=== PATIENT | male | born 1955 | race Caucasian/White ===

== ENCOUNTER → 2017-06-26 | Day surgery (SDC) | payer OTHER ==
[2017-05-22 08:44] VITALS: Ht 167.6 cm; Wt 81.8 kg
[~2017-06-26] VITALS: Ht 167.6 cm; Wt 81.8 kg
[~2017-06-26] MED LIST: 500ML BSS 0.3ML EPI 1:1000PF IRRIG ONE; ACETAMINOPHEN 325 MG TAB PO PRN; AMVISC PLUS 0.8ML SYRINGE INT OCU ONE; ATROPINE SULFATE 0.1 MG/ML 5ML SYR IV PRN; BRIMONIDINE TART 0.2% OP SOLN PER DROP CHARGE ONE; BSS FLUSH ONE; ENDOCOAT 0.85ML SYRINGE INT OCU ONE; EpHEDrine SULFATE INJ 50 MG/ML AMP IV PRN; EpINEphrine INJ 1MG/ML AMP 1 MG/ML AMP ONE; LACTATED RINGER'S 1000ML 500 ML IV SCH; LIDOCAINE 4% OP SOLN DROP CHARGE ONE; LIDOCAINE 4% OP SOLN DROP CHARGE OPR SCH; LIDOCAINE HCL 1% MPF 2 ML VIAL ONE; MIDAZOLAM HCL 1 MG/ML 2ML VIAL ONE; MOXIFLOXACIN OPH SOLN PER DROP CHARGE ONE; ONDANSETRON INJ 2 MG/ML 2 ML VIAL IV PRN; POVIDONE-IODINE OP SOLN 30 ML BTL ONE; PROPARACAINE 0.5% OP SOLN PER DROP CHARGE OPR SCH; TOBRAMYCIN/DEXAMETHASONE OPH OINT PER APPLN CHARGE ONE
--- NOTE | 2017-06-26 10:09 | History & Physical Bridge - SC ---
H&P Re-Evaluation Bridge Note: I have examined the patient, reviewed the History & Physical and in the interval since the performance of the History & Physical I have noted the following changes of clinical significance: No changes noted
[2017-06-26] MEDS: PHENYLEPHRINE HCL 2.5% OP SOLN PER DROP CHARGE OPR SCH ×2 (10:11→10:16)
[2017-06-26] MEDS: TROPICAMIDE 1% OP SOLN PER DROP CHARGE OPR SCH ×2 (10:12→10:17)
[2017-06-26] MEDS: CYCLOPENTOLATE HCL 1% OP SOLN PER DROP CHARGE OPR SCH ×2 (10:13→10:18)
[2017-06-26] MEDS: KETOROLAC 0.5% OP SOLN PER DROP CHARGE OPR SCH ×2 (10:14→10:19)
[2017-06-26] MEDS: MOXIFLOXACIN OPH SOLN PER DROP CHARGE OPR SCH ×2 (10:15→10:25)
--- NOTE | 2017-06-26 11:34 | [facility] Operative Report ---
Operative Report Operative Date Jun 26, 2017. Pre-Operative Diagnosis Right Eye Cataract Post-Operative Diagnosis same Procedure(s) Performed Right Cataract Phacoemulsification With Intraocular Lens Implant Surgeon Dr. Isabel Nash Face Boss Surgeon(s) 0 Estimated Blood Loss 0 Findings cataract right eye Fluids see anesthesia record Specimens none Drains None Anesthesia Type MAC Complication(s) none Disposition no Recovery Room / PACU Indications decreased vision right eye Description of Procedure After informed consent was obtained in the holding area the patient was wheeled back to the operating room where cardiac monitoring leads and oxygen by nasal cannula was administered by Anesthesia. Gentle IV sedation was given, and the patient's right eye was prepped and draped in usual sterile fashion. A wire lid speculum was placed into the right eye and the operating microscope was swung into position. Using 0.12 forceps and a Supersharp blade a paracentesis port was made 2 o'clock hours away from the 9 o'clock position of the patient's right eye. 1% non-preserved Lidocaine was then injected into the anterior chamber for anesthesia. A 2.0 mm keratotome blade was then used to make a shelved clear corneal incision at the 9 o'clock position of the right eye. Amvisc was injected into the anterior chamber and a cystotome and Utrata forceps were used to perform a curvilinear capsulorrhexis. BSS on a hydrodissection cannula was used to hydrodissect the lens nucleus away from the capsular bag. The phacoemulsification handpiece was then used in a stop and chop fashion to remove the lens nucleus. The irrigation and aspiration handpiece was then used to remove the residual cortical material. Amvisc was injected into the capsular bag and anterior chamber and a Bausch & Lomb MX60 9.0 Diopter intraocular lens was injected into the capsular bag. Irrigation and aspiration handpiece was used to remove the residual viscoelastic material. The wounds were hydrated and noted to be watertight. The wire lid speculum was removed from the eye. Vigamox, Brimonidine, and TobraDex ointment were placed on the eye and it was shielded. It should be noted that EndoCoat was used extensively during the case to protect the cornea endothelium. DISPOSITION: The patient tolerated the procedure well and was wheeled to the post anesthesia care unit in stable condition. I attest to the content of the Intraoperative Record and any orders documented therein. Any exceptions are noted below. I attest to the content of the Intraoperative Record and any orders documented therein. Any exceptions are noted below.
--- NOTE | 2017-06-26 11:35 | Discharge Instructions-SurgCtr ---
Discharge Instructions Date of Service Jun 26, 2017. Visit Reason for Visit: Cataract Right Eye Discharge Discharge Diagnosis / Problem: cataract right eye Discharge Goals Goal(s): Improve function Activity Recommendations Activity Limitations: per Instructions/Follow-up section Lifting Limitations: no more than 5 pounds Anesthesia . Post Anesthesia Instructions: If you have had General Anesthesia or IV Sedation: * Do not drive today. * Resume driving when surgeon permits. * Do not make important decisions or sign legal documents today. * Call surgeon for: 1. Temperature elevations greater than 101 degrees F. 2. Uncontrollable pain. 3. Excessive bleeding. 4. Persistent nausea and vomiting. 5. Medication intolerance (nausea, vomiting or rash). * For nausea and vomiting use only clear liquids such as: tea, soda, bouillon until nausea subsides, then gradually increase diet as tolerated. * If you have any concerns or questions, call your surgeon's office. If physician is unavailable and it is an emergency, call 911 or go to the nearest emergency room. . Instructions / Follow-Up Instructions / Follow-Up ACTIVITY RECOMMENDATIONS: * Light activities * You may walk outside, read, watch television. * Mild irritation and blurred vision are common for the first few days, redness around the white part of the eye is common. MEDICATIONS: Resume previous medications unless instructed otherwise by your surgeon. Eye drops (today and tomorrow): Cipro - one drop in operative eye every 2 hours while awake Prednisolone 1% - one drop in operative eye every 2 hours while awake Ilevro - one drop operative eye 1 times daily SPECIAL CARE INSTRUCTIONS: * If any problems or concerns, please call Dr. Nash's office at . * Keep plastic shield taped over eye to sleep at night. * Keep plastic shield taped over eye except to administer eye drops. * Keep plastic shield on until office visit the following day. FOLLOW UP VISIT: Follow-up with Dr. Nash in the [place] office as scheduled. If not already scheduled, please call the office at . Diet Recommendations Home Diet: resume previous diet Procedures Procedures Performed: Right Cataract Phacoemulsification With Intraocular Lens Implant Pending Studies Studies pending at discharge: no Medical Emergencies . Who to Call and When: Medical Emergencies: If at any time you feel your situation is an emergency, please call 911 immediately. . Non-Emergent Contact Non-Emergency issues call your: Automation Developer . . "Provider Documentation" section prepared by Tommy Nash. .
[2017-06-26 11:37] VITALS: TEMP 36.4
[2017-06-26 12:00] VITALS: BP 130/86; PULSE 59; O2SAT 98
--- NOTE | 2017-06-26 12:10 | Anesthesia Progress Nt - [facility] ---
Anesthesia Post Op Note Date & Time Jun 26, 2017 at 12:10 Vital Signs Pain Intensity: 0 Vital Signs Past 12 Hours Date Time Temp Pulse Resp B/P (MAP) Pulse Ox O2 Delivery O2 Flow Rate FiO2 06/26/17 12:00 59 18 130/86 (101) 98 Room Air 06/26/17 11:37 36.4 62 16 150/97 (114) 96 Room Air 06/26/17 10:00 36.8 61 18 129/87 (101) 98 Room Air Notes Mental Status: alert / awake / arousable, participated in evaluation Pt Amnestic to Procedure: Yes Nausea / Vomiting: adequately controlled Pain: adequately controlled Airway Patency, RR, SpO2: stable & adequate BP & HR: stable & adequate Hydration State: stable & adequate Anesthetic Complications: no major complications apparent
== END | disposition home or self-care (01) ==
LOC: X.SURG 09:52
PROVIDERS: ATTEND Ophthalmology
DX: H25.11 Age-related nuclear cataract, right eye (principal)

== ENCOUNTER → 2017-07-10 | Day surgery (SDC) | payer OTHER ==
[2017-07-07 08:26] VITALS: Ht 167.6 cm; Wt 81.8 kg
[~2017-07-10] VITALS: Ht 167.6 cm; Wt 81.8 kg
[~2017-07-10] MED LIST changes: -EpHEDrine SULFATE INJ 50 MG/ML AMP IV PRN; +LIDOCAINE 4% OP SOLN DROP CHARGE OPL SCH; -LIDOCAINE 4% OP SOLN DROP CHARGE OPR SCH; -ONDANSETRON INJ 2 MG/ML 2 ML VIAL IV PRN; +PROPARACAINE 0.5% OP SOLN PER DROP CHARGE OPL SCH; -PROPARACAINE 0.5% OP SOLN PER DROP CHARGE OPR SCH
[2017-07-10] MEDS: PHENYLEPHRINE HCL 2.5% OP SOLN PER DROP CHARGE OPL SCH ×2 (10:09→10:14)
[2017-07-10] MEDS: TROPICAMIDE 1% OP SOLN PER DROP CHARGE OPL SCH ×2 (10:10→10:15)
[2017-07-10] MEDS: CYCLOPENTOLATE HCL 1% OP SOLN PER DROP CHARGE OPL SCH ×2 (10:11→10:16)
[2017-07-10] MEDS: KETOROLAC 0.5% OP SOLN PER DROP CHARGE OPL SCH ×2 (10:12→10:17)
[2017-07-10] MEDS: MOXIFLOXACIN OPH SOLN PER DROP CHARGE OPL SCH ×2 (10:13→10:18)
--- NOTE | 2017-07-10 11:40 | [facility] Operative Report ---
Operative Report Operative Date Jul 10, 2017. Pre-Operative Diagnosis Left eye cataract Post-Operative Diagnosis Same as preop Procedure(s) Performed Left Cataract Phacoemulsification With Intraocular Lens Implant Surgeon Dr. Nash Meteorology Professor Surgeon(s) None Estimated Blood Loss 0 mL Findings cataract left eye Fluids see anesthesia record Specimens None Drains None Anesthesia Type MAC Complication(s) none Disposition no Recovery Room / PACU Indications decreased vision left eye Description of Procedure After informed consent was obtained in the holding area the patient was wheeled back to the operating room where cardiac monitoring leads and oxygen by nasal cannula was administered by Anesthesia. Gentle IV sedation was given, and the patient's left eye was prepped and draped in usual sterile fashion. A wire lid speculum was placed into the left eye and the operating microscope was swung into position. Using 0.12 forceps and a Supersharp blade a paracentesis port was made 2 o'clock hours away from the 3 o'clock position of the patient's left eye. 1% non-preserved Lidocaine was then injected into the anterior chamber for anesthesia. A 2.0 mm keratotome blade was then used to make a shelved clear corneal incision at the 3 o'clock position of the left eye. Amvisc was injected into the anterior chamber and a cystotome and Utrata forceps were used to perform a curvilinear capsulorrhexis. BSS on a hydrodissection cannula was used to hydrodissect the lens nucleus away from the capsular bag. The phacoemulsification handpiece was then used in a stop and chop fashion to remove the lens nucleus. The irrigation and aspiration handpiece was then used to remove the residual cortical material. Amvisc was injected into the capsular bag and anterior chamber and a Bausch & Lomb MX60 11.0 Diopter intraocular lens was injected into the capsular bag. Irrigation and aspiration handpiece was used to remove the residual viscoelastic material. The wounds were hydrated and noted to be watertight. The wire lid speculum was removed from the eye. Vigamox, Brimonidine, and TobraDex ointment were placed on the eye and it was shielded. It should be noted that EndoCoat was used extensively during the case to protect the cornea endothelium. DISPOSITION: The patient tolerated the procedure well and was wheeled to the post anesthesia care unit in stable condition. I attest to the content of the Intraoperative Record and any orders documented therein. Any exceptions are noted below. I attest to the content of the Intraoperative Record and any orders documented therein. Any exceptions are noted below.
[2017-07-10 11:42] VITALS: TEMP 36.3
--- NOTE | 2017-07-10 11:42 | Discharge Instructions-SurgCtr ---
Discharge Instructions Date of Service Jul 10, 2017. Visit Reason for Visit: Cataract Left Eye Discharge Discharge Diagnosis / Problem: cataract left eye Discharge Goals Goal(s): Improve function Activity Recommendations Activity Limitations: per Instructions/Follow-up section Lifting Limitations: no more than 5 pounds Anesthesia . Post Anesthesia Instructions: If you have had General Anesthesia or IV Sedation: * Do not drive today. * Resume driving when surgeon permits. * Do not make important decisions or sign legal documents today. * Call surgeon for: 1. Temperature elevations greater than 101 degrees F. 2. Uncontrollable pain. 3. Excessive bleeding. 4. Persistent nausea and vomiting. 5. Medication intolerance (nausea, vomiting or rash). * For nausea and vomiting use only clear liquids such as: tea, soda, bouillon until nausea subsides, then gradually increase diet as tolerated. * If you have any concerns or questions, call your surgeon's office. If physician is unavailable and it is an emergency, call 911 or go to the nearest emergency room. . Instructions / Follow-Up Instructions / Follow-Up ACTIVITY RECOMMENDATIONS: * Light activities * You may walk outside, read, watch television. * Mild irritation and blurred vision are common for the first few days, redness around the white part of the eye is common. MEDICATIONS: Resume previous medications unless instructed otherwise by your surgeon. Eye drops (today and tomorrow): Cipro - one drop in operative eye every 2 hours while awake Prednisolone 1% - one drop in operative eye every 2 hours while awake Ilevro - one drop operative eye 1 times daily SPECIAL CARE INSTRUCTIONS: * If any problems or concerns, please call Dr. Nash's office at . * Keep plastic shield taped over eye to sleep at night. * Keep plastic shield taped over eye except to administer eye drops. * Keep plastic shield on until office visit the following day. FOLLOW UP VISIT: Follow-up with Dr. Nash in the [place] office as scheduled. If not already scheduled, please call the office at . Diet Recommendations Home Diet: resume previous diet Procedures Procedures Performed: Left Cataract Phacoemulsification With Intraocular Lens Implant Pending Studies Studies pending at discharge: no Medical Emergencies . Who to Call and When: Medical Emergencies: If at any time you feel your situation is an emergency, please call 911 immediately. . Non-Emergent Contact Non-Emergency issues call your: Professor Of English . . "Provider Documentation" section prepared by Tommy Nash. .
[2017-07-10 11:56] VITALS: BP 119/81; PULSE 63; O2SAT 96
--- NOTE | 2017-07-10 12:07 | Anesthesia Progress Nt - [facility] ---
Anesthesia Post Op Note Date & Time Jul 10, 2017 at 12:07 Vital Signs Pain Intensity: 0 Vital Signs Past 12 Hours Date Time Temp Pulse Resp B/P (MAP) Pulse Ox O2 Delivery O2 Flow Rate FiO2 07/10/17 11:56 63 18 119/81 (94) 96 Room Air 07/10/17 11:42 36.3 64 16 119/69 (86) 97 Room Air 07/10/17 10:02 36.8 64 20 134/89 (104) 94 Room Air Notes Mental Status: alert / awake / arousable, participated in evaluation Pt Amnestic to Procedure: Yes Nausea / Vomiting: adequately controlled Pain: adequately controlled Airway Patency, RR, SpO2: stable & adequate BP & HR: stable & adequate Hydration State: stable & adequate Anesthetic Complications: no major complications apparent
== END | disposition home or self-care (01) ==
LOC: X.SURG 09:52
PROVIDERS: ATTEND Ophthalmology
DX: H25.12 Age-related nuclear cataract, left eye (principal); Z88.0 Allergy status to penicillin

== ENCOUNTER 2020-09-30 05:36 | Observation (INO) ==
--- NOTE | 2020-09-15 15:42 | PAT Medication Instructions ---
Medication Instructions Date of Service September 15, 2020 Home Medications alfuzosin 10 mg PO QPM dutasteride 0.5 mg PO QPM nitrofurantoin macrocrystal [Macrodantin] 50 mg PO QPM ASK your surgeon for instructions nitrofurantoin macrocrystal [Macrodantin] 50 mg PO QPM Take evening before surgery alfuzosin 10 mg PO QPM dutasteride 0.5 mg PO QPM Other Notes If you have any questions please call us at [phone] or [phone] or [phone] or [phone]
--- NOTE | 2020-09-16 14:21 | Anesthesiology Consultation ---
Date of Service September 16, 2020 Assessment & Plan (1) Encounter for pre-operative examination: Chart Review Chart Review: Acceptable Risk for Surgery (pending preop Covid testing results ) and Patient seen in Pre Admission Testing Per PAT appt on 09/16/20, pt resides in [facility]. Traveled to [place], [place] (has second home)- returned 09/08/20 (denies any large group activities). Wears mask in public. No known Covid positive contacts or Covid related symptoms. No known Covid infection in the past 90 days. Pt scheduled for preop Covid testing 09/28/20= will await results. Educated on importance of self quarantining, social distancing and wearing mask in public both for the patient and household contacts. Pt fully vaccinated History Surgery Operation Date: 09/30/20 07:15 Proposed Procedures p Cystoscopy Transurethral Resection Prostate - Bk Barrow MD Height/Weight Height: 5 ft 6 in Weight: 76.4 kg Allergies Allergy/AdvReac Type Severity Reaction Status Date / Time amoxicillin Allergy Mild Rash Verified 09/11/20 11:47 Medications Home Medications Medication Instructions Recorded Confirmed Last Taken alfuzosin 10 mg PO QPM 09/11/20 09/11/20 Unknown dutasteride 0.5 mg PO QPM 09/11/20 09/11/20 Unknown nitrofurantoin macrocrystal 50 mg PO QPM 09/11/20 09/11/20 Unknown [Macrodantin] Past Medical History Medical History BPH with obstruction/lower urinary tract symptoms Heart murmur Present since childhood per patient- no commercial sales director or ECHO No significant murmur noted on PAT exam on 09/16/20 Spermatocele Exercise / Class Metabolic Activity II 4-5 Yardwork/Stairs/Walk up hill (one flight of stairs - no chest pain or SB ) Past Family History Family History Other No family history of adverse response to anesthesia No pertinent family history in first degree relatives Past Surgical History Surgical History History of bilateral cataract extraction History of colonoscopy History of detached retina repair (~2019) x2-- one on right and left History of prostate biopsy 08/11/20--benign History of wisdom tooth extraction Hx of hand surgery right thumb, tendon repair Hx of tonsillectomy Past Anesthesia History No Hx of Anesthesia Complications and No Family Hx of Anesthesia Complications History of PONV No Hx of PONV and No Hx of Motion Sickness Social History Smoking Status: Never smoker Do You Dip or Chew Tobacco: No Hx Alcohol Use: Yes Alcohol type: beer and wine alcohol intake frequency: 0-2 drinks per day (2 drinks per day ) Hx Substance Use: No substance use type: does not use Review of Systems Occ snoring - no witnessed apnea - no hx of sleep study Patient denies chest pain, shortness of breath, dyspnea on exertion, reflux, cough, wheezing, palpitations. No hx of seizures, stroke, [place]. No hx of blood clots or blood transfusions Physical Exam Vital Signs VITALS BP 104/66 P 65 TEMP 98.2 SP02 96% RESP 16 Constitutional no acute distress ENMT Mouth: no TMJ clicking Thyromental Distance: > or= 3.5 Finger Breadths (3.5) Mallampati Class: II [place] to molar Neck neck extension not limited Respiratory normal respiratory effort; no respiratory distress Auscultation: lungs clear to auscultation bilaterally; no wheezes Cardiovascular Rate/Rhythm: regular rate and regular rhythm Heart Sounds: no murmur (no significant murmur noted ) Vessels: no carotid bruit Musculoskeletal Spine: no pain with cervical ROM Extremities: extremities normal to inspection Psychiatric Orientation: alert Lab Results Anesthesia Preop Results Results Anesthesia Widget: WBC 5.89 K/uL (4.8-10.8) 09/16/20 Hgb 14.3 g/dL (14.0-18.0) 09/16/20 Hct 41.5 % (42-52) L 09/16/20 Plt 284 K/uL (130-400) 09/16/20 Na 139 mmol/L (136-145) 09/16/20 K 4.0 mmol/L (3.5-5.1) 09/16/20 Cl 108 mmol/L (98-107) H 09/16/20 CO2 26 mmol/L (21-32) 09/16/20 BUN 19 mg/dl (7-18) H 09/16/20 Creat 0.93 mg/dl (0.6-1.4) 09/16/20 Glucose Level 107 mg/dl (70-99) H 09/16/20 Urine Color Yellow 09/16/20 Urine Appearance Clear (Clear) 09/16/20 Urine pH 6.0 (4.5-7.5) 09/16/20 Urine Specific Fence 1.012 (1.000-1.030) 09/16/20 Urine Protein Negative (Negative) 09/16/20 Urine Glucose (UA) Negative (Negative) 09/16/20 Urine Ketones Negative (Negative) 09/16/20 Urine Blood Negative (Negative) 09/16/20 Urine Nitrite Negative (Negative) 09/16/20 Urine Bilirubin Negative (Negative) 09/16/20 Urine Urobilinogen Negative (Negative) 09/16/20 Urine Leukocyte Esterase Negative (Negative) 09/16/20 Blood Type A Positive 09/16/20 Antibody Screen NEGATIVE 09/16/20 Testing Electrocardiogram Date: 09/16/20 Findings: + SB @ (57bpm) Otherwise normal EKG per cardio. Chest X-Ray Date: 09/16/20 Findings: + NAD Cardiac mediastinal and hilar silhouettes are within normal limits. Minimal interstitial coarsening of the lung bases, likely chronic. There is no pneumothorax, pleural effusion, airspace consolidation or overt pulmonary edema. The bones of the chest appear grossly intact.
[2020-09-30] MEDS ORDERED: GENTAMICIN SULFATE 160 MG in DEXTROSE 5% 100 ML IV SCH (06:00)
[2020-09-30] MEDS ORDERED: LR 15ML/HR IV SCH (06:00)
[2020-09-30] MEDS ORDERED: LIDOCAINE 2% 2 ML VIAL/AMP(20MG/ML) INFIL ONE (06:47)
[2020-09-30] MEDS ORDERED: DEXAMETHASONE SOD INJ 4 MG/ML VIAL ONE (06:47)
[2020-09-30] MEDS ORDERED: ONDANSETRON INJ 2 MG/ML 2 ML VIAL ONE (06:47)
[2020-09-30] MEDS ORDERED: PROPOFOL IV EMULSION 10 MG/ML 20 ML VIAL IV ONE (06:47)
[2020-09-30] MEDS ORDERED: fentaNYL citrate 100 MCG/2 ML VIAL ONE (06:48)
[2020-09-30] MEDS ORDERED: MIDAZOLAM HCL 1 MG/ML 2ML VIAL ONE (06:48)
[2020-09-30] MEDS ORDERED: FLUMAZENIL 0.1 MG/1 ML 10 ML VIAL IV PRN (06:52)
[2020-09-30] MEDS ORDERED: ATROPINE SULFATE 0.1 MG/ML 10ML SYR IV PRN (06:52)
[2020-09-30] MEDS ORDERED: LABETALOL HCL IV 5 MG/ML 20ML IV PRN (06:52)
[2020-09-30] MEDS ORDERED: NALOXONE HCL 0.4 MG/1 ML VIAL/CARP IV PRN (06:52)
[2020-09-30] MEDS ORDERED: ONDANSETRON INJ 2 MG/ML 2 ML VIAL IV PRN ×2 (06:52→10:59)
[2020-09-30] MEDS ORDERED: ePHEDrine sulfate 50 MG/ML AMP IV PRN (06:52)
[2020-09-30] MEDS ORDERED: fentaNYL citrate 100 MCG/2 ML VIAL IV PRN (06:52)
[2020-09-30] MEDS ORDERED: PROMETHAZINE HCL 12.5 MG in SODIUM CHLORIDE 0.9% 50 ML IV PRN (06:52)
--- NOTE | 2020-09-30 07:15 | History & Physical Bridge Note ---
Date of Service September 30, 2020 History & Physical Bridge Note I have examined the patient, reviewed the History & Physical and in the interval since the performance of the History & Physical I have noted the following changes of clinical significance: no changes noted
[2020-09-30] MEDS ORDERED: ePHEDrine sulfate 50 MG/ML AMP ONE (08:02)
--- NOTE | 2020-09-30 09:44 | Post Operative Brief Note ---
PG Immediate Post Op with CF Date of Surgery September 30, 2020 Pre & Post Diagnosis Operation Date: 09/30/20 07:15 Pre-Op Diagnosis: Benign Prostatic Hyperplasia with Obstruction/Lower Urinary Tract Symptoms Post-Op Diagnosis: Benign Prostatic Hyperplasia with Obstruction/Lower Urinary Tract Symptoms I identified the patient and participated in the time-out.: Yes Procedure Operation Date: 09/30/20 07:15 Actual Procedures p Cystoscopy, Transurethral Resection Prostate(Not Applicable) - Bk Barrow MD Surgeon Bk Barrow MD Ground Crew Lines Person none Estimated Blood Loss 100 Findings Consistent with Post-Op Diagnosis Specimens Specimen Description: A. Prostate Chips Drains Mayfield Catheter
--- NOTE | 2020-09-30 10:22 | Anesthesiology Progress Note ---
Date of Service September 30, 2020 Anesthesia Post Procedure Vital Signs Vital Signs: Temp Pulse Pulse Resp BP BP Pulse Ox 09/30/20 10:15 61 14 117/70 95 09/30/20 10:00 66 12 109/78 100 09/30/20 09:50 69 18 125/76 100 09/30/20 09:41 36.0 C L 68 18 134/79 100 09/30/20 06:05 36.7 C 65 20 120/76 97 Pain Intensity Penis: Pain Intensity: 5 Transfer of Care Handoff Completed per policy Notes Mental Status: alert / awake / arousable Patient Amnestic to Procedure: Yes Nausea / Vomiting: adequately controlled Pain: adequately controlled Airway Patency, RR, SpO2: stable & adequate BP & HR: stable & adequate Hydration State: stable & adequate Anesthetic Complications: no major complications apparent
--- NOTE | 2020-09-30 10:48 | Operative Report (OR) ---
DATE OF PROCEDURE: 09/30/2020 PROCEDURE PERFORMED: Transurethral resection of the prostate. HISTORY OF PRESENTATION: The patient is a 65-year-old male who initially presented with slightly fe vated PSA and obstructive and irritative voiding symptoms and was found to have a residual of 400-500 . Initially, I started him on CIC, did do a prostate biopsy which was negative and because of his la rge residuals scheduled him to have a TURP. In the interim, he developed retention, had some difficu lty with needing a catheter for a short period of time. He presents now after being on a dutasteride and alfuzosin for a TURP, but also has somewhat of a neurogenic bladder, which he understands. DESCRIPTION OF PROCEDURE: The patient was taken to the operating room where Venodyne stockings had b een placed and he received 160 mg of gentamicin. He was placed in dorsal lithotomy position and prep ped and draped in the usual sterile fashion after general anesthesia had been administered. Initiall y I was unable to pass the resectoscope, so had to dilate the patient to 30-Malay with the Cindy sounds. Then, was able to pass the resectoscope. We identified the left ureteral orifice easily wi th the right ureteral orifice, it was somewhat difficult to identify, but did not feel that it was te rribly close to the bladder neck, given the left ureteral orifice. Date of resection of the left ulices dder neck and first the right side then the left side of the prostate with electrovaporization button with bipolar therapy and then took some resection at the end for tissue and also to smooth out the p rostate. At the end, there was a good channel from the verumontanum into the bladder with good contr ol and minimal bleeding. The estimated bleeding was 100 mL. Urine was clear at the end, I did remove all the chips that I could see. Again, it was clear that the patient did have somewhat of a floppy bladder at the end indicative of a neurogenic bladder. Job ID: [id number]
[2020-09-30 10:58] LABS: Basophils # (auto) 0.01 K/uL (0-0.2); Basophils % (auto) 0.1 %; Eosinophils # (auto) 0.04 K/uL (0-0.5); Eosinophils % (auto) 0.5 %; Hematocrit (blood only) 44.3 % (42-52); Hemoglobin 14.8 g/dL (14.0-18.0); Immature Granulocytes # (auto) 0.02 K/uL (0.00-0.02); Immature Granulocytes % (auto) 0.3 %; Lymphocytes # (auto) 1.15 K/uL (1.2-3.4); Lymphocytes % (auto) 15.7 %; Mean Corpuscular Hemoglobin 32.5 pg (25-34); Mean Corpuscular Volume 97.1 fL (80-100); Mean Platelet Volume 9.8 fL (7.4-10.4); Monocytes # (auto) 0.12 K/uL (0.11-0.59); Monocytes % (auto) 1.6 %; Neutrophils % (auto) 81.8 %; Platelet Count 245 K/uL (130-400); RDW Coefficient of Variation 12.7 % (11.5-14.5); RDW Standard Deviation 45.2 fL (36.4-46.3); Red Blood Count 4.56 M/uL (4.7-6.1); White Blood Count 7.34 K/uL (4.8-10.8)
[2020-09-30] MEDS ORDERED: ACETAMINOPHEN 325 MG TAB PO PRN (10:59)
[2020-09-30] MEDS ORDERED: oxyCODONE HCL IR 5 MG TAB (IMMEDIATE RELEASE) PO PRN ×2 (10:59)
[2020-09-30] MEDS ORDERED: MoRPHine SULFATE 2 MG/ML CARP IV PRN ×2 (10:59→11:07)
[2020-09-30] MEDS: LACTATED RINGER'S 1,000 ML IV SCH ×2 (11:02→19:09)
[2020-09-30 11:17] LABS: BUN Creatinine Ratio 16.3 (10-20); Calcium 8.9 mg/dl (8.5-10.1); Creatinine Clr Calc Pharmacy 76.3 ml/min; Est GFR (African American) 98.8 ml/min; Est GFR (Non-African American) 85.2 ml/min; Potassium 4.3 mmol/L (3.5-5.1)
[2020-09-30 11:20] LABS: Mean Corpuscular Hgb Conc 33.4 g/dL (32-36)
[2020-09-30] MEDS ORDERED: GENTAMICIN SULFATE 80 MG in DEXTROSE 5% 100 ML IV SCH (14:00)
--- NOTE | 2020-09-30 19:44 | Urology Progress Note ---
Date of Service September 30, 2020 Assessment & Plan (1) BPH with obstruction/lower urinary tract symptoms: (2) S/P TURP: Discharge to home Admission and Anticipated Discharge Date Admission Date: September 30, 2020 Subjective Pt doing well post turp . No pain . Discussed and will discharge patient tonight with catheter for f/u in 9 days for voiding trial Physical Exam Genitourinary: urine draining clear Results & Data ([facility]) Vital Signs (Past 12 Hours) Vital Signs Temp Pulse Resp BP Pulse Ox 09/30/20 18:00 36.6 C 72 16 128/69 98 09/30/20 14:59 36.2 C L 84 16 105/56 L 96 09/30/20 13:29 36.6 C 70 16 124/62 97 09/30/20 12:29 36.2 C L 74 16 126/64 98 09/30/20 11:29 37.0 C 73 16 122/72 97 09/30/20 10:59 37.0 C 72 16 120/71 96 09/30/20 10:25 36.2 C L 70 20 112/68 96 09/30/20 10:15 61 14 117/70 95 09/30/20 10:00 66 12 109/78 100 09/30/20 09:50 69 18 125/76 100 09/30/20 09:41 36.0 C L 68 18 134/79 100 PG Care Time/CCT Total # of Minutes Spent Total Time Spent with Patient: Total time spent is greater than 50% in c oordination of care (as documented) at patient's floor/unit and/or counseling patient: Coding Level of Care Code None Diagnoses BPH with obstruction/lower urinary tract symptoms N40.1; N13.8 S/P TURP Z90.79
--- NOTE | 2020-10-20 11:30 | Discharge Summary (DS) ---
DATE OF ADMISSION: 09/30/2020 DATE OF DISCHARGE: 09/30/2020 HISTORY OF PRESENTATION: The patient is a 65-year-old male status post negative prostate biopsy for an elevated PSA, who had a transurethral resection of his prostate because of incomplete emptying. Radha bianchi was admitted on the day of the procedure after having a transurethral resection of the prostate oleg t was uncomplicated. He had a Mayfield catheter placed. The urine was relatively clear. Later in the evening, the patient was seen because his cath urine was remaining clear and he was comfortable, he w as discharged to home in stable condition on oral antibiotics with followup in 1 week for a voiding t ed. Job ID: [id number]
== END 2020-09-30 20:27 | disposition home or self-care (01) ==
LOC: 3N 05:36 → ASU 05:36